=== PATIENT | male | born 1990 | race Caucasian/White ===

== ENCOUNTER 2017-11-26 14:06 | Emergency (ER) | payer MEDICAID ==
[~2017-11-26] VITALS: Ht 172.7 cm; Wt 63.0 kg
[2017-11-26] MEDS: BACITRACIN ZINC OINT UDPKT TOP ONE ×2 (16:00→16:08)
[2017-11-26] MEDS ORDERED: LIDOCAINE HCL 1% 20ML VIAL (Pyxis) INJ MC ONE (16:00)
[2017-11-26] MEDS ORDERED: LIDOCAINE HCL/PF 1% 10 MG/ML 5ML VIAL ONE (16:11)
[2017-11-26 18:22] VITALS: BP 114/65
== END 2017-11-26 18:24 | disposition home or self-care (01) ==
LOC: ER 16:04
DX: H60.11 Cellulitis of right external ear (principal)
CPT/HCPCS: 99283; J3490